=== PATIENT | female | born 1965 | race American Indian/Alaskan Native ===

== ENCOUNTER 2021-04-14 12:20 | Outpatient (CLI) | payer BC ==
--- NOTE | 2021-04-14 14:48 | Mammography Report ---
DEXA BONE DENSITY SCAN INDICATION: OSTEOPOROSIS. COMPARISON: None available. LUMBAR SPINE (L1-L4): Bone mineral density (BMD) is 0.989 g/cm2. T-score is -0.5 (standard deviations of Young Adult mean). Z-score is -0.4 (standard deviations of Age Matched mean). LEFT FEMORAL NECK: Bone mineral density (BMD) is 0.777 g/cm2. T-score is -0.7 (standard deviations of Young Adult mean). Z-score is -0.5 (standard deviations of Age Matched mean). IMPRESSION: 1. WHO Classification: Normal bone density. Fracture Risk: Not Increased. Signer Name: Jim Delaney MD Signed: 04/14/2021 2:43 PM Workstation Name: [email or web address]
--- NOTE | 2021-04-15 08:35 | Mammography Report ---
DIGITAL SCREENING MAMMOGRAM WITH CAD, 04/14/2021 CLINICAL INFORMATION / INDICATION: Routine screening mammography. SCREENING MAMMOGRAM TECHNIQUE: Digital bilateral 2D mammography was obtained in the craniocaudal and mediolateral obliqu e projections. This examination was interpreted with the benefit of Computer-Aided Detection analysis . COMPARISON: None FINDINGS: Breast Density: There are scattered areas of fibroglandular density. No dominant mass, suspicious calcifications, or architectural distortion in either breast. There is a 4 mm nodule in the right breast, deep posterior depth, central location. IMPRESSION: Right breast finding as above. Follow up recommendation: Ultrasound BI-RADS Category 0: INCOMPLETE. Needs additional imaging evaluation and/or prior mammograms for gómez cruz. A "normal" or negative report should not discourage follow up or biopsy of a clinically significant f inding. A written summary of these findings will be mailed to the patient. The patient will be entered into a mammography reporting system which will generate a reminder letter for the patient's next appointmen t at the appropriate interval. The [employer] recommends yearly mammograms starting at age 40 and continuing as l iveth as a woman is in good health. Breast MRI is recommended for women with an approximate 20-25% or greater lifetime risk of breast cancer, including women with a strong family history of breast or ova troy cancer or who have been treated for Hodgkin's disease. Signer Name: Nic Clark MD Signed: 04/15/2021 8:31 AM Workstation Name: [id number]
== END 2021-04-14 12:21 | disposition home or self-care (01) ==
LOC: MAMMO 12:20
PROVIDERS: ATTEND Obstetrics & Gynecology
DX: Z12.31 Encounter for screening mammogram for malignant neoplasm of breast (principal); Z13.820 Encounter for screening for osteoporosis; M81.0 Age-related osteoporosis without current pathological fracture
CPT/HCPCS: 77067; 77080

== ENCOUNTER 2021-04-27 08:45 | Outpatient (CLI) | payer BC ==
--- NOTE | 2021-04-27 10:06 | Ultrasound Report ---
ULTRASOUND BREAST RIGHT COMPLETE, 04/27/2021 CLINICAL INFORMATION / INDICATION: ABNORMAL MAMMOGRAM. Patient presents as a callback from screening mammogram for further evaluation of a small nodular density in the right breast. TECHNIQUE: Complete sonographic evaluation of all 4 quadrants and retroareolar region was performed. COMPARISON: Prior mammogram 04/14/2021 FINDINGS: Complete ultrasound of the right breast reveals normal fibroglandular tissue. No suspicious cystic or solid lesion identified. There is no sonographic correlate for the small nodular density described o n recent mammogram. IMPRESSION: 1. No sonographic abnormality to correspond with the recent mammographic finding. I believe that this was likely secondary to overlapping fibroglandular tissue and a tortuous blood vessel, though spot c ompression views are recommended for confirmation. The mammography machine is currently down today, s o patient will be scheduled to return for spot compression views. Follow up recommendation: Special View: Spot BI-RADS Category 0: INCOMPLETE. Needs additional imaging evaluation and/or prior mammograms for gómez cruz. A normal or "negative" report should not preclude biopsy or follow-up of a clinically suspicious find ing. Signer Name: Tessa Sweeney MD Signed: 04/27/2021 10:02 AM Workstation Name: [id number]
== END 2021-04-27 08:46 | disposition home or self-care (01) ==
LOC: US 08:45
PROVIDERS: ATTEND Nurse Practitioner Neonatal, Critical Care
DX: R92.8 Other abnormal and inconclusive findings on diagnostic imaging of breast (principal)

== ENCOUNTER 2021-06-02 09:02 | Outpatient (CLI) | payer BC ==
--- NOTE | 2021-06-13 10:13 | Mammography Report ---
DIGITAL DIAGNOSTIC MAMMOGRAM WITH CAD CONVENTIONAL, RIGHT CLINICAL INFORMATION / INDICATION: Right breast nodule seen on screening mammogram, here for follow-u p ABNORMAL MAMMOGRAM TECHNIQUE: Digital right mammographic imaging was performed. Spot compression views were obtained. This examination was interpreted with the benefit of Computer-aided Detection analysis. COMPARISON: Screening mammogram from 04/14/2021 and ultrasound from 04/27/2019. Outside comparison exam from 01/19/2020 has also become available and was reviewed. FINDINGS: Breast Density: There are scattered areas of fibroglandular density. No dominant mass, suspicious calcifications or architectural distortion in either breast. Question nodular density in the mid depth of the right breast was present on the previous outside exa m which was not available at the time of initial interpretation. IMPRESSION: No mammographic evidence of malignancy. Follow up recommendation: Return to annual screening BI-RADS 2: Benign finding A "normal" or negative report should not discourage follow up or biopsy of a clinically significant f inding. A written summary of these findings will be mailed to the patient. The patient will be entered into a mammography reporting system which will generate a reminder letter for the patient's next appointmen t at the appropriate interval. According to the [employer], yearly mammograms are recommended starting at age 40 and continuing as long as a woman is in good health. Breast MRI is recommended for women with an mavis roximately 20-25% or greater lifetime risk of breast cancer, including women with a strong family his tory of breast or ovarian cancer and women who have been treated for Hodgkin's disease. Signer Name: Nic Clark MD Signed: 06/13/2021 10:09 AM Workstation Name: [id number]
== END 2021-06-02 09:03 | disposition home or self-care (01) ==
LOC: MAMMO 09:02
PROVIDERS: ATTEND Obstetrics & Gynecology
DX: R92.8 Other abnormal and inconclusive findings on diagnostic imaging of breast (principal)